=== PATIENT | male | born 1965 | race Caucasian/White ===

== ENCOUNTER 2020-08-15 11:28 | Emergency (ER) | payer OTHER ==
[~2020-08-15] VITALS: Ht 167.6 cm; Wt 84.0 kg
[2020-08-15] MEDS ORDERED: IBUPROFEN 600MG TABLET PO ONE (13:30)
[2020-08-15] MEDS ORDERED: IBUP-2029 MT (16:12)
[2020-08-15 16:37] VITALS: BP 130/78
== END 2020-08-15 16:58 | disposition home or self-care (01) ==
LOC: ER 11:28
DX: S50.01XA Contusion of right elbow, initial encounter (principal); E11.9 Type 2 diabetes mellitus without complications; I10 Essential (primary) hypertension; E78.00 Pure hypercholesterolemia, unspecified; W22.8XXA Striking against or struck by other objects, initial encounter; Y93.89 Activity, other specified; Y92.812 Truck as the place of occurrence of the external cause; Y99.8 Other external cause status
CPT/HCPCS: 73080; 73090; 73200; 99284; A4565